=== PATIENT | male | born 1990 ===

== ENCOUNTER 2024-09-21 12:03 | Inpatient (IN) | payer OTHER ==
[~2024-09-21] VITALS: Ht 185.4 cm; Wt 91.9 kg
[2024-09-21 12:38] LABS: BASOPHILS ABSOLUTE AUTO 0.02 K/mm3 (0.00-0.23); BASOPHILS PERCENT AUTO 0 % (0-2); EOSINOPHILS ABSOLUTE AUTO 0.07 K/mm3 (0.00-0.68); EOSINOPHILS PERCENT AUTO 1 % (0-6); IMMATURE GRAN ABSOLUTE AUTO 0.09 K/mm3 (0.00-0.10); IMMATURE GRAN PERCENT AUTO 1 % (0-1); LYMPHOCYTES ABSOLUTE AUTO 3.46 K/mm3 (0.84-5.20); LYMPHOCYTES PERCENT AUTO 42 % (21-46); MONOCYTES PERCENT AUTO 6 % (4-13); Mean Corpuscular HGB 33.6 pg (26.0-34.0); Mean Corpuscular HGB Conc 34.1 g/dL (31.5-36.5); Mean Corpuscular Volume 99 fL (80-100); Mean Platelet Volume 10.3 fL (9.1-12.4); NEUTROPHILS ABSOLUTE AUTO 4.14 K/mm3 (1.96-9.15); NEUTROPHILS PERCENT AUTO 50 % (41-73); NRBC ABSOLUTE 0.12 K/mm3 (0.00-0.02); NRBC Auto 1.4 /100 WBC (0.0-0.2); Platelet Count 268 K/mm3 (150-400); RDW Coefficient Variation 18.2 % (11.7-14.2); RDW Standard Deviation 50.9 fL (35.1-46.3); Red Blood Cell Count 1.37 M/mm3 (4.30-5.90); White Blood Cell Count 8.28 K/mm3 (4.00-11.30)
[2024-09-21 12:53] LABS: Albumin, Blood 3.4 g/dL (3.4-5.0); Albumin/Globulin Ratio 1.4 (0.8-1.8); Bilirubin, Total 0.7 mg/dL (0.1-1.0); Bun/Creatinine Ratio 20.8 (12.0-20.0); Calcium, Blood 8.3 mg/dL (8.5-10.1); Creatinine, Blood 1.01 mg/dL (0.60-1.20); Globulin, Blood 2.5 g/dL (2.2-4.0); Potassium, Blood 3.1 mmol/L (3.5-5.5); Total Protein, Blood 5.9 g/dL (6.4-8.2)
[2024-09-21 12:56] LABS: Hematocrit 13.5 % (37.0-53.0); Hemoglobin 4.6 g/dL (13.5-17.5)
[2024-09-21] MEDS ORDERED: Pantoprazole Sodium 40 MG Injection IV ONE (13:05)
[2024-09-21 13:07] LABS: International Normalized Ratio 0.98; Prothrombin Time Results 10.5 Sec (9.7-11.5)
[2024-09-21] MEDS ORDERED: NS 1,000 ML IV SCH (13:45)
[2024-09-21 14:26] LABS: Influenza A, PCR NEGATIVE (NEGATIVE); Influenza B, PCR NEGATIVE (NEGATIVE); Resp Syncytial Virus, PCR NEGATIVE (NEGATIVE); SARS-Cov-2 (COVID-19) PCR, MMC NEGATIVE (NEGATIVE)
[2024-09-21] MEDS ORDERED: Pantoprazole Sodium 40 MG Injection IV SCH (16:00)
[2024-09-21] MEDS ORDERED: Lactated Ringer's 1,000 ML IV SCH (16:05)
[2024-09-21] MEDS ORDERED: Potassium Chl 20MEQ/Water100ML 100 ML IV SCH (17:25)
[2024-09-21 20:52] VITALS: BP 116/74
[2024-09-21] MEDS ORDERED: BIKTARVY PO (20:56)
--- NOTE | 2024-09-21 21:31 | NUR ---
ASSUMPTION OF CARE/TRANSFER NOTE PATIENT TO PCU AT 1900 DURING SHIFT CHANGE. REY TO BEDSIDE TO DISCUSS PLAN OF CARE REGARDING UPPER/LOWER SCOPE TO BE DONE TOMORROW 09/22. PT COMPLETED 3RD UNIT OF PRBC'S AFTER TRANSFER TO UNIT. LR AND K+ CHLORIDE NOW INFUSING PER EMAR. LAB TO REDRAW H/H, AWAITING RESULTS. SR ON MONITOR WITH HR 80-90'S. PT DENIES CHEST PAIN/PRESSURE, SOB, AND DIZZINESS. ON RA WITH SPO2 >92%. BP STABLE. AFEBRILE. PT NEURO INTACT, A&O X4. ABLE TO MAKE NEEDS KNOWN. WATER AND ICE CHIPS ONLY. BED IN LOWEST POSITION AND CALL LIGHT WITHIN REACH.
[2024-09-21 21:56] LABS: Hematocrit 20.7 % (37.0-53.0); Hemoglobin 7.2 g/dL (13.5-17.5)
[2024-09-21] MEDS ORDERED: Peg/Electrolytes 4,000 ML BTL PO STA (23:13)
[2024-09-21 23:35] VITALS: BP 116/73
[2024-09-22] VITALS (34 sets, daily range): BP systolic 80–132; BP diastolic 57–95
[2024-09-22] MEDS ORDERED: Ondansetron HCl 2 MG / ML 2ML Vial IV PRN (01:40)
[2024-09-22 04:42] LABS: BASOPHILS ABSOLUTE AUTO 0.03 K/mm3 (0.00-0.23); BASOPHILS PERCENT AUTO 1 % (0-2); EOSINOPHILS ABSOLUTE AUTO 0.04 K/mm3 (0.00-0.68); EOSINOPHILS PERCENT AUTO 1 % (0-6); Hematocrit 20.3 % (37.0-53.0); Hemoglobin 6.9 g/dL (13.5-17.5); IMMATURE GRAN ABSOLUTE AUTO 0.07 K/mm3 (0.00-0.10); IMMATURE GRAN PERCENT AUTO 1 % (0-1); LYMPHOCYTES ABSOLUTE AUTO 1.87 K/mm3 (0.84-5.20); LYMPHOCYTES PERCENT AUTO 32 % (21-46); MONOCYTES ABSOLUTE AUTO 0.39 K/mm3 (0.16-1.47); MONOCYTES PERCENT AUTO 7 % (4-13); Mean Corpuscular HGB 31.2 pg (26.0-34.0); Mean Corpuscular Volume 92 fL (80-100); Mean Platelet Volume 10.3 fL (9.1-12.4); NEUTROPHILS ABSOLUTE AUTO 3.42 K/mm3 (1.96-9.15); NEUTROPHILS PERCENT AUTO 59 % (41-73); NRBC ABSOLUTE 0.04 K/mm3 (0.00-0.02); NRBC Auto 0.7 /100 WBC (0.0-0.2); Platelet Count 173 K/mm3 (150-400); RDW Coefficient Variation 17.5 % (11.7-14.2); Red Blood Cell Count 2.21 M/mm3 (4.30-5.90); White Blood Cell Count 5.82 K/mm3 (4.00-11.30)
--- NOTE | 2024-09-22 04:42 | NUR ---
SHIFT SUMMARY SEE PREVIOUS NOTE PT STARTED [place] EARLIER IN THIS SHIFT. SEVERAL EPISODES OF DARK STOOLS. PT BECAME NAUSEOUS WELL. THIS RN CALLED MD FRANCE AND RECEIVED AN ORDER FOR ZOFRAN; MEDICATED PER EMAR WITH GOOD RESULTS. VSS. DENIES CHEST PAIN/PRESSURE, SOB, AND DIZZINESS. BED IN LOWEST POSITION AND CALL LIGHT WITHIN REACH. THIS RN WILL REPORT TO ONCOMING DAYSIDFT RN.
[2024-09-22 05:08] LABS: Albumin, Blood 2.7 g/dL (3.4-5.0); Albumin/Globulin Ratio 1.4 (0.8-1.8); Bilirubin, Total 1.9 mg/dL (0.1-1.0); Bun/Creatinine Ratio 18.4 (12.0-20.0); Calcium, Blood 7.7 mg/dL (8.5-10.1); Creatinine, Blood 0.87 mg/dL (0.60-1.20); Potassium, Blood 3.5 mmol/L (3.5-5.5); Total Protein, Blood 4.7 g/dL (6.4-8.2)
--- NOTE | 2024-09-22 05:13 | NUR ---
PATIENT UPDATE THIS RN SPOKE TO MD FRANCE REGARDING HGB OF 6.9 ON MORNING LABS. MD FRANCE WITH ORDERS TO RECHECK H/H AT 0530 AND TRANSFUSE 1 UNIT IF STILL BELOW 7. ORDER PLACED PER .
[2024-09-22] MEDS ORDERED: NS 500 ML IV SCH ×2 (05:45→09:25)
[2024-09-22 06:22] LABS: Hematocrit 19.2 % (37.0-53.0); Hemoglobin 6.8 g/dL (13.5-17.5)
[2024-09-22] MEDS ORDERED: Peg/Electrolytes 4,000 ML BTL PT ONE (08:00)
[2024-09-22 15:01] LABS: Hemoglobin 8.4 g/dL (13.5-17.5)
--- NOTE | 2024-09-22 16:02 | NUR ---
PT HAS 18G TO RIGHT AC THAT FLUSHES WELL AND FLOWS TO GRAVITY. PT ALSO HAS 20G IV TO LEFT AC THAT ALSO FLUSHES WELL.
--- NOTE | 2024-09-22 16:05 | NUR ---
PT BROUGHT FROM FLOOR TO DAY SURGERY FOR PROCEDURE. History, Chart, Medications and Allergies reviewed before start of procedure. Lungs clear T/O to Auscultation. Patient confirms NPO status and agrees with scheduled surgery. Pre-Op teaching done. Pt verbalizes understanding. PT BELONGINGS LEFT IN ROOM ON PCU FOR SAFEKEEPING. PT HAS PIERCING TO CHEST AND RING ON FINGER THAT CANNOT BE REMOVED. ENDO TEAM NOTIFIED.
[2024-09-22] MEDS ORDERED: Midazolam HCl 1MG / ML 2ML Vial ONE (16:39)
[2024-09-22] MEDS ORDERED: propofoL 60 ML IV ONE (16:39)
--- NOTE | 2024-09-22 17:02 | NUR ---
09/22/24 1702 Vasquez Andre CONFIRMED AND REVIEWED H&P, MEDCICATIONS, ALLERGIES, MEDICAL HISTORY, RESPIRATORY HISTORY, VITAL SIGNS, 3-LEAD EKG, CONSENTS, AND PHYSICIAN ORDERS. PATIENT CONFIRMS NPO STATUS AND AGREES WITH SCHEDULED PROCEDURE. MONITOR INTACT WITH CONTINUOUS PULSE OXIMETRY, CAPNOGRAPHY, 3-LEAD EKG, INTERMITTENT BP. SUPPLEMENTAL O2 TO BE TITRATED THROUGHOUT PROCEDURE TO MAINTAIN O2 SATURATION ABOVE 90%. PATIENT DETERMINED TO BE ASA APPROPRIATE FOR PROPOFOL SEDATION PRIOR TO START OF PROCEDURE BY DR. PEARSON.
--- NOTE | 2024-09-22 18:16 | NUR ---
SHIFT SUMMARY PT A&Ox4, CALLS AND COMMUNICATES NEEDS APPROPRIATELY. BP STABLE, SINUS 80'S, DENIES CP/PRESSURE. SpO2> 92% RA, DENIES SOB. IND IN ROOM. LOOSE BROWN/BLACK STOOL WITH BOWEL PREP. PT DENIES PAIN. NO OTHER EVENTS, WILL REPORT TO ONCOMING RN.
--- NOTE | 2024-09-22 20:19 | NUR ---
ASSUMPTION OF CARE/DISCHARGE NOTE THIS RN ASSUMED CARE OF PATIENT AT 1900. PT TO BE DISCHARGED TONIGHT. ALLERGIST/PEDIATRIC PULMONOLOGIST HUMPHREY COMPLETING DISCHARGE AFTER SHIFT CHANGE. VSS. PT DENIES CHEST PAIN/PRESSURE, SOB, AND DIZZINESS. NO S/S OF BLEEDING. UPPER/LOWER SCOPE'S WERE CLEAR. F/U OUTPATIENT PER MD LE, PT AND PT'S MOTHER VERBALIZED UNDERSTANDING EDUCATION. DENIED FURTHER QUESTIONS. NO CHANGES TO HOME MEDS. X2 PERIPHERAL IV'S DC'D. TELE REMOVED. PT DRESSED SELF INDEPENDENTLY. DECLINED WHEELCHAIR. WALKED OFF UNIT WITH NO S/S OF DISTRESS NOTED.
== END 2024-09-22 20:05 | disposition home or self-care (01) | DRG 394 ==
LOC: ER 12:03 → PCU 15:20
PROVIDERS: Emergency Medicine; Internal Medicine Gastroenterology; Student in an Organized Health Care Education/Training Program; ADMIT Family Medicine
PROC: 0DJD8ZZ Inspection of Lower Intestinal Tract, Via Natural or Artificial Opening Endoscopic (ICD-10-PCS; 2024-09-22)
PROC: 0DB68ZX Excision of Stomach, Via Natural or Artificial Opening Endoscopic, Diagnostic (ICD-10-PCS; principal; 2024-09-22 15:00)
PROC: 0DB78ZX Excision of Stomach, Pylorus, Via Natural or Artificial Opening Endoscopic, Diagnostic (ICD-10-PCS; 2024-09-22 15:00)
DX: K63.81 Dieulafoy lesion of intestine (principal); B20 Human immunodeficiency virus [HIV] disease; D62 Acute posthemorrhagic anemia; K25.9 Gastric ulcer, unspecified as acute or chronic, without hemorrhage or perforation; R74.01 Elevation of levels of liver transaminase levels; R94.31 Abnormal electrocardiogram [ECG] [EKG]; F10.21 Alcohol dependence, in remission; Z79.899 Other long term (current) drug therapy
CPT/HCPCS: 0241U; 36415; 36430; 71045; 76705; 80053; 83735; 83880; 84484; 85014; 85018; 85025; 85610; 86850; 86900; 86901; 86923; 93005; 93010; 96361; 96374; 99285-25; A9270; J2250; J2405; J2470; J2704; J3480; J7030; J7040; J7120; P9016